=== PATIENT | male | born 1955 | race Caucasian/White ===

== ENCOUNTER 2019-10-27 05:46 | Day surgery (SDC) | payer MEDICARE ==
[2019-10-27] VITALS (10 sets, daily range): BP systolic 127–154; BP diastolic 83–99
[~2019-10-27] VITALS: Ht 180.3 cm; Wt 91.9 kg
[~2019-10-27 05:46] MED LIST: NO HOME MEDS; ceFAZolin 2gm in dextrose, iso 50 ML IV ONE; famotidine 20mg tablet PO ONE; ringers solution, lacted 1,000 ML IV SCH
[2019-10-27] MEDS ORDERED: LIDOcaine 1% (10mg/ml) 2ml vial ONE (06:15)
[2019-10-27 06:37] LABS: ALBUMIN/GLOBULIN RATIO 1.4 (1.1-1.5); ALKALINE PHOSPHATASE 64 IU/L (46-116); BASOPHILS # (AUTO) 0.1 X10'3 (0-0.2); BLOOD UREA NITROGEN 18 MG/DL (7-18); BUN/CREATININE RATIO 16.8 (5.4-32.0); CALCIUM 8.9 MG/DL (8.5-10.1); CHLORIDE 106 MMOL/L (99-107); CREATININE 1.07 MG/DL (0.60-1.10); EOSINOPHILS # (AUTO) 0.1 X10'3 (0-0.9); EOSINOPHILS % (AUTO) 1.7 % (0-6); MEAN CORPUSCULAR HEMOGLOBIN 31.1 PG (27.0-31.0); MEAN CORPUSCULAR HGB CONC 34.1 g/dL (33.0-36.5); MEAN CORPUSCULAR VOLUME 91.3 FL (78-98); MEAN PLATELET VOLUME 8.6 FL (7.4-10.4); MONOCYTES # (AUTO) 0.5 X10'3 (0-0.9); MONOCYTES % (AUTO) 9.5 % (2-12); NEUTROPHILS % (AUTO) 52.8 % (42-75); PRE OP ALT 27 U/L (30-65); PRE OP ANION GAP 7 (8-16); PRE OP AST 17 U/L (10-37); PRE OP BILIRUB, TOTAL 0.6 MG/DL (0.0-1.0); PRE OP GLUCOSE 97 MG/DL (70-104); PRE OP PLATELET COUNT 156 X10'3 (140-440); PRE OP SODIUM 141 MMOL/L (135-145); RED BLOOD COUNT 5.15 X10'6 (4.70-6.10); RED CELL DISTRIBUTION WIDTH 13.2 % (11.5-14.5); TOTAL CARBON DIOXIDE 28.3 MMOL/L (24-32); TOTAL PROTEIN 6.8 G/DL (6.4-8.2); eGFR 69 ML/MIN
[2019-10-27] MEDS ORDERED: BUPIVAcaine/PF 2.5 mg/ml (0.25%) 30ml vial ONE (06:41)
[2019-10-27] MEDS ORDERED: LIDOcaine 1% 30ml preserv. free vial ONE (06:41)
[2019-10-27] MEDS ORDERED: midazolam 2 mg/2 ml injection ONE (07:16)
[2019-10-27] MEDS ORDERED: propofol inj 20 ML IV ONE (07:16)
[2019-10-27] MEDS ORDERED: LIDOcaine 2% (20mg/ml) 5ml vial ONE (07:16)
[2019-10-27] MEDS ORDERED: fentaNYL/PF 50MCG/1 ML 2ML syringe ONE (07:16)
[2019-10-27] MEDS ORDERED: morphine 2 MG/ML inj. syringe IV PRN (07:20)
[2019-10-27] MEDS ORDERED: ringers solution, lacted 1,000 ML IV SCH (07:20)
[2019-10-27] MEDS ORDERED: proCHLORperazine 10 MG/2 ml inj IV PRN (07:20)
[2019-10-27] MEDS ORDERED: morphine 4 MG/ML inj SYRINge IV PRN (07:20)
[2019-10-27] MEDS ORDERED: ondansetron/PF 4mg/2ml inj IV PRN (07:20)
[2019-10-27] MEDS ORDERED: meperidine/PF 25mg/ml syringe IV PRN ×2 (07:20)
[2019-10-27] MEDS ORDERED: rocuronium 10mg/ml inj IV ONE (07:27)
[2019-10-27] MEDS ORDERED: acetaminophen 1000 MG/100ml vial IV ONE (07:27)
[2019-10-27] MEDS ORDERED: sevoflurane 250ml liquid IH ONE (07:27)
[2019-10-27] MEDS ORDERED: ondansetron/PF 4mg/2ml inj ONE (07:48)
[2019-10-27] MEDS ORDERED: dexamethasone sod phosphate 4mg/ml inj. ONE (07:48)
[2019-10-27] MEDS ORDERED: meperidine/PF 25mg/ml syringe ONE (08:58)
--- NOTE | 2019-10-27 09:12 | NUR ---
Received from OR via , accompanied by Anesthesiologist DR NAVARRO and report given by Anesthesiolgist. PT ASLEEP, ABD SOFT, LAP SITES W/ BANDAIDS TO ABD CDI X 3.
--- NOTE | 2019-10-27 09:22 | NUR ---
ORAL [employer]WAY DC'D. PT BREATHING EFFECTIVELY, ALERT AND ORIENTED.
[2019-10-27] MEDS: meperidine/PF 25mg/ml syringe IV PRN ×2 (09:34→09:51)
[2019-10-27] MEDS ORDERED: HYDROcodone/acetaminophen 5mg/325mg tablet PO PRN (09:35)
--- NOTE | 2019-10-27 10:29 | NUR ---
PT RECOVERED FROM ANESTHESIA. TOLERATING WATER AND CRACKERS. PT READY FOR DC TO HOME ONCE HE IS ABLE TO VOID. LAP SITES CDI, ABD SOFT.
--- NOTE | 2019-10-27 11:22 | NUR ---
PT WAS ABLE TO VOID W/O DIFFICULTY. STATES READINESS FOR DC TO HOME. PT UNDERSTANDS INST FOR DC TO HOME AND FOLLOW UP CARE. IV DC'D. ALSO UNDERSTANDS DC INSTUCTIONS. PT AMBULATED SAFELY TO RESTROOM. PT WAS DC'D VIA W/C. ALL BELONGINGS W/ PT INCLUDING GLASSES, WATCH AND WEDDING BAND. PT TOLERATED SODA AND CRACKERS. RATED PAIN "MUCH BETTER" AND DENIED NAUSEA. LAP SITES CDI, ABD SOFT. PT DISHCARGED TO HOME.
== END 2019-10-27 11:22 | disposition home or self-care (01) ==
LOC: PAS 05:46
PROVIDERS: ATTEND Surgery
DX: K40.20 Bilateral inguinal hernia, without obstruction or gangrene, not specified as recurrent (principal); Z79.899 Other long term (current) drug therapy; Z87.891 Personal history of nicotine dependence
CPT/HCPCS: 36415; 49650; 80053; 85025; 93005; C1781; J0131; J1100; J2001; J2175; J2250; J2270; J2405; J2704; J3010; J3490; J7120; A4215; A4618